=== PATIENT | female | born 1975 | race American Indian/Alaskan Native ===

== ENCOUNTER 2018-11-22 12:06 | Observation (INO) | payer OTHER ==
[2018-11-22 12:38] VITALS: BMI 37.3
[2018-11-22] MEDS ORDERED: Sodium Chloride 0.9% 1,000 ML IV ONE ×2 (13:48→14:37)
--- NOTE | 2018-11-22 14:01 | C.PDOC ---
History Of Present Illness Patient is a 43 year old female, with a PMHx of asthma and a PSHx of tubal ligation 18 years ago, who presents to the ED c/o nausea, vomiting, and abdominal pain since 6am yesterday. She also notes that she has a headache that began in the ED. Patient states that she has not been able to keep anything down and that her last BM was 2 days ago. 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 She denies any diarrhea, constipation, urinary symptoms, CP, SOB, or sick contacts. Time Seen by Provider: 11/22/18 13:14 Chief Complaint (Nursing): GI Problem History Per: Patient History/Exam Limitations: no limitations Onset/Duration Of Symptoms: Days (1) Current Symptoms Are (Timing): Still Present Location Of Pain/Discomfort: Epigastric Quality Of Discomfort: "Pain" Associated Symptoms: Nausea, Vomiting. denies: Diarrhea, Chest Pain, Constipation, Urinary Symptoms Recent travel outside of the [place]: No Additional History Per: Patient Past Medical History Reviewed: Historical Data, Nursing Documentation, Vital Signs Vital Signs: Last Vital Signs Temp 99.4 F 11/22/18 12:33 Pulse 109 H 11/22/18 12:33 Resp 18 11/22/18 12:33 BP 151/93 H 11/22/18 12:33 Pulse Ox 99 11/22/18 12:33 - Medical History PMH: No Chronic Diseases Surgical History: No Surg Hx Family History: States: Unknown Family Hx - Social History Hx Tobacco Use: No Hx Alcohol Use: Yes Hx Substance Use: No - Immunization History Hx Influenza Vaccination: No Hx Pneumococcal Vaccination: No Review Of Systems Cardiovascular: Negative for: Chest Pain Respiratory: Negative for: Shortness of Breath Gastrointestinal: Positive for: Nausea, Vomiting, Abdominal Pain (epigastric). Negative for: Diarrhea, Constipation Genitourinary: Negative for: Dysuria, Hematuria Neurological: Positive for: Headache Physical Exam - Physical Exam Appears: Non-toxic, No Acute Distress Head: Atraumatic, Normacephalic Oral Mucosa: Moist Neck: Supple Chest: Symmetrical, No Deformity Cardiovascular: No Rhythm Regular (tachycardic), No Murmur Respiratory: Normal Breath Sounds, No Rales, No Rhonchi, No Wheezing Gastrointestinal/Abdominal: Soft, Tenderness (epigastric), No Guarding, No Rebound Neurological/Psych: Oriented x3, Normal Speech, Normal Cognition ED Course And Treatment - Laboratory Results Result Diagrams: 11/22/18 14:08 11/22/18 14:08 ECG: Interpreted By Me, Viewed By Me ECG Rhythm: Sinus Rhythm Interpretation Of ECG: U waves presents. No acute ST/T wave changes Rate From EC O2 Sat by Pulse Oximetry: 99 (on RA) Pulse Ox Interpretation: Normal - Other Rad Obstructive Series X-Ray: Viewed By Me, Read By Radiologist Interpretation: Date of service: 11/22/2018. PROCEDURE: Radiographs of the chest and abdomen (obstructive series). HISTORY: NAUSEA/VOMITING, H/O SURGERY. COMPARISON: No prior. TECHNIQUE: AP radiograph of the chest, with upright and supine radiographs of the abdomen. FINDINGS: CHEST: Lungs: The lungs are well inflated and clear. Cardiovascular: Normal size heart. No pulmonary vascular congestion. No aortic atherosclerotic calcification present. Pleura: No pleural fluid. No pneumothorax. Other findings: None. ABDOMEN AND PELVIS: Bowel: The bowel gas pattern is nonspecific. No evidence of bowel dilatation or obstruction. There is gas in normal caliber colon. Free air: None. Bones: Unremarkable. Other findings: None. IMPRESSION: Nonspecific nonobstructive bowel-gas pattern. Clear lungs. Progress Note: Plan: Labs. Obstructive Series. Urinalysis HCG. Urinalysis. EKG. Pepcid 20mg IVP. Reglan 10mg IV. Zofran 4mg IVP. Potassium Chloride 20meq in 100ml IVPB. IV Fluids Disposition - Disposition Forms: [facility] (Greek) - Scribe Statement The provider has reviewed the documentation as recorded by the Cheyenne Marks All medical record entries made by the Scribe were at my direction and personally dictated by me. I have reviewed the chart and agree that the record accurately reflects my personal performance of the history, physical exam, medical decision making, and the department course for this patient. I have also personally directed, reviewed, and agree with the discharge instructions and disposition.
[2018-11-22 14:21] LABS: BASO # 0.1 K/uL (0.0-0.2); BASO % 0.5 % (0.0-2.0); HEMOGLOBIN 13.8 g/dL (11.0-16.0); LYMPH # 1.6 K/uL (1.0-4.3); LYMPH % 8.9 % (20.0-40.0); MEAN CELL VOLUME 81.1 fL (81.0-99.0); MEAN CORPUSCULAR HEMOGLOBIN 25.9 pg (27.0-31.0); MEAN PLATELET VOLUME 9.7 fL (7.2-11.7); MONO # 1.2 K/uL (0.0-0.8); MONO % 6.8 % (0.0-10.0); NEUT # 14.9 K/uL (1.8-7.0); NEUT % 83.8 % (50.0-75.0); PLATELET COUNT 471 K/uL (130-400); RBC 5.32 Mil/uL (3.80-5.20); RED CELL DISTRIBUTION WIDTH 14.4 % (11.5-14.5); WHITE BLOOD COUNT 17.8 K/uL (4.8-10.8)
[2018-11-22] MEDS ORDERED: Sodium Chloride 0.9% 1,000 ML ONE (14:21)
[2018-11-22 14:31] LABS: HCG,QUALITATIVE URINE NEGATIVE (NEGATIVE)
[2018-11-22 14:32] LABS: ALB/GLOB RATIO 1.2 (1.0-2.1); ALBUMIN 5.1 g/dL (3.5-5.0); ALT/SGPT 16 U/L (9-52); AST/SGOT 38 U/L (14-36); BLOOD UREA NITROGEN 17 mg/dL (7-17); CALCIUM 9.7 mg/dl (8.6-10.4); GFR NON-AFRICAN AMERICAN 54; LIPASE 52 U/L (23-300)
[2018-11-22 14:51] LABS: SQUAMOUS EPITHIAL 3 /hpf (0-5); URINE BILIRUBIN NEGATIVE (NEGATIVE); URINE BLOOD 3+ (NEGATIVE); URINE CLARITY Hazy (Clear); URINE COLOR Amber (YELLOW); URINE GLUCOSE (UA) NORMAL (Normal); URINE HYALINE CAST >20 /lpf (0-2); URINE LEUKOCYTE ESTERASE 1+ Leu/uL (Negative); URINE PROTEIN 2+ mg/dL (NEGATIVE); URINE UROBILINOGEN NORMAL mg/dL (0.2-1.0)
[2018-11-22 14:59] LABS: URINE BACTERIA MANY (<OCC)
[2018-11-22 15:00] LABS: BANDS 2 % (0-2); LYMPHOCYTE 9 % (20-40); MONOCYTE 6 % (0-10); NEUTROPHIL 83 % (50-75); PLATELET ESTIMATE SLIGHTLY INCREASED (NORMAL); TOTAL CELLS COUNTED 100
[2018-11-22 15:01] LABS: LARGE PLATELETS PRESENT
[2018-11-22 15:02] LABS: HYPOCHROMIC SLIGHT; STOMATOCYTES SLIGHT
[2018-11-22] MEDS ORDERED: Potassium Chloride 20 mEq ER Tab PO STA (15:14)
[2018-11-22] MEDS ORDERED: Potassium Chloride 20 mEq ER Tab PO ONE (15:24)
[2018-11-22] MEDS ORDERED: Potassium Chloride 20 mEq 100 ML ONE (15:25)
--- NOTE | 2018-11-22 15:40 | RAD ---
Date of service: 11/22/2018 PROCEDURE: Radiographs of the chest and abdomen (obstructive series) HISTORY: NAUSEA/VOMITING, H/O SURGERY COMPARISON: No prior. TECHNIQUE: AP radiograph of the chest, with upright and supine radiographs of the abdomen. FINDINGS: CHEST: Lungs: The lungs are well inflated and clear. Cardiovascular: Normal size heart. No pulmonary vascular congestion. No aortic atherosclerotic calcification present Pleura: No pleural fluid. No pneumothorax. Other findings: None. ABDOMEN AND PELVIS: Bowel: The bowel gas pattern is nonspecific. No evidence of bowel dilatation or obstruction. There is gas in normal caliber colon. Free air: None. Bones: Unremarkable. Other findings: None. IMPRESSION: Nonspecific nonobstructive bowel-gas pattern. Clear lungs.
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
[2018-11-22 20:40] LABS: HEPATITIS B SURFACE AG Negative (NEGATIVE)
[2018-11-22 20:46] LABS: HEPATITIS A IGM NEGATIVE (NEGATIVE); HEPATITIS B CORE AB NEGATIVE (NEGATIVE)
[2018-11-22 20:58] LABS: HEPATITIS C ANTIBODY NEGATIVE (NEGATIVE)
--- NOTE | 2018-11-23 06:59 | CP.PCM.PN ---
Objective - Vital Signs/Intake and Output Vital Signs (last 24 hours): Temp Pulse Resp BP Pulse Ox 98.1 F 75 14 155/71 H 100 11/23/18 06:00 11/23/18 06:00 11/23/18 06:00 11/23/18 06:00 11/23/18 06:00 Intake and Output: 11/22/18 11/23/18 18:59 06:59 Intake Total 500 Balance 500 - Medications Medications: Current Medications Famotidine (Pepcid) 20 mg PO DAILY [facility] Ceftriaxone Sodium 1 gm/ (Sodium Chloride) 100 mls @ 100 mls/hr IVPB Q12H [facility]ASI; Protocol Last Admin: 11/22/18 20:44 Dose: 100 mls/hr Potassium Chloride 20 meq/ (Sodium Chloride) 1,010 mls @ 100 mls/hr IV .Q10H6M KASI Last Admin: 11/23/18 06:14 Dose: 100 mls/hr Ondansetron HCl (Zofran Inj) 4 mg IVP Q6H PRN PRN Reason: Nausea/Vomiting Saccharomyces Boulardii (Florastor) 250 mg PO BID KASI - Labs Labs: 11/22/18 14:08 11/22/18 23:02
[2018-11-23 07:30] LABS: BASO % 0.4 % (0.0-2.0); EOS % 0.1 % (0.0-4.0); LYMPH # 2.5 K/uL (1.0-4.3); LYMPH % 24.7 % (20.0-40.0); MEAN CELL VOLUME 81.5 fL (81.0-99.0); MEAN CORPUSCULAR HEMOGLOBIN 26.7 pg (27.0-31.0); MEAN CORPUSCULAR HGB CONC 32.7 g/dL (33.0-37.0); MEAN PLATELET VOLUME 9.4 fL (7.2-11.7); MONO # 0.9 K/uL (0.0-0.8); MONO % 8.5 % (0.0-10.0); NEUT # 6.6 K/uL (1.8-7.0); NEUT % 66.3 % (50.0-75.0); RBC 4.37 Mil/uL (3.80-5.20); RED CELL DISTRIBUTION WIDTH 14.3 % (11.5-14.5)
[2018-11-23 07:35] LABS: HEMOGLOBIN 11.7 g/dL (11.0-16.0)
[2018-11-23 07:51] LABS: ALB/GLOB RATIO 1.3 (1.0-2.1); ALBUMIN 3.7 g/dL (3.5-5.0); ALT/SGPT 22 U/L (9-52); AST/SGOT 29 U/L (14-36); BLOOD UREA NITROGEN 8 mg/dL (7-17); CALCIUM 7.7 mg/dl (8.6-10.4); GFR NON-AFRICAN AMERICAN > 60
[2018-11-23 08:17] VITALS: RESP 20
[2018-11-23] MEDS ORDERED: Enoxaparin 40 mg Syringe SC SCH (10:00)
[2018-11-23] MEDS: Saccharomyces Boulardi 250 mg Cap PO SCH ×2 (10:12→17:55)
[2018-11-23] MEDS ORDERED: Potassium Chloride 20 mEq ER Tab PO ONE (10:30)
[2018-11-23 15:35] VITALS: BP 161/76; TEMP 98; O2SAT 96
[2018-11-23 15:49] VITALS: PULSE 70
--- NOTE | 2018-11-23 19:18 | CP.PCM.DIS ---
Provider - Provider Date of Admission: 11/22/18 16:45 Attending physician: Gaurav Cohen MD Time Spent in preparation of Discharge (in minutes): 180 Diagnosis - Discharge Diagnosis (1) Gastroenteritis Status: Acute Hospital Course - Lab Results Lab Results: Micro Results 11/22/18 22:16 Urine,Clean Catch Urine Culture - Preliminary No growth. Most Recent Lab Values WBC 10.0 K/uL (4.8-10.8) 11/23/18 07:21 RBC 4.37 Mil/uL (3.80-5.20) 11/23/18 07:21 Hgb 11.7 g/dL (11.0-16.0) D 11/23/18 07:21 Hct 35.6 % (34.0-47.0) 11/23/18 07:21 MCV 81.5 fL (81.0-99.0) 11/23/18 07:21 MCH 26.7 pg (27.0-31.0) L 11/23/18 07:21 MCHC 32.7 g/dL (33.0-37.0) L 11/23/18 07:21 RDW 14.3 % (11.5-14.5) 11/23/18 07:21 Plt Count 344 K/uL (130-400) D 11/23/18 07:21 MPV 9.4 fL (7.2-11.7) 11/23/18 07:21 Neut % (Auto) 66.3 % (50.0-75.0) 11/23/18 07:21 Lymph % (Auto) 24.7 % (20.0-40.0) 11/23/18 07:21 Simpson % (Auto) 8.5 % (0.0-10.0) 11/23/18 07:21 Eos % (Auto) 0.1 % (0.0-4.0) 11/23/18 07:21 Baso % (Auto) 0.4 % (0.0-2.0) 11/23/18 07:21 Neut # (Auto) 6.6 K/uL (1.8-7.0) 11/23/18 07:21 Lymph # (Auto) 2.5 K/uL (1.0-4.3) 11/23/18 07:21 Simpson # (Auto) 0.9 K/uL (0.0-0.8) H 11/23/18 07:21 Eos # (Auto) 0.0 K/uL (0.0-0.7) 11/23/18 07:21 Baso # (Auto) 0.0 K/uL (0.0-0.2) 11/23/18 07:21 Neutrophils % (Manual) 83 % (50-75) H 11/22/18 14:08 Band Neutrophils % 2 % (0-2) 11/22/18 14:08 Lymphocytes % (Manual) 9 % (20-40) L 11/22/18 14:08 Monocytes % (Manual) 6 % (0-10) 11/22/18 14:08 Platelet Estimate Slightly increased (NORMAL) H 11/22/18 14:08 Large Platelets Present 11/22/18 14:08 Hypochromasia (manual) Slight 11/22/18 14:08 Stomatocytes Slight 11/22/18 14:08 Sodium 138 mmol/L (132-148) 11/23/18 07:21 Potassium 3.2 mmol/L (3.6-5.2) L 11/23/18 07:21 Chloride 105 mmol/L (98-107) 11/23/18 07:21 Carbon Dioxide 23 mmol/L (22-30) 11/23/18 07:21 Anion Gap 13 (10-20) 11/23/18 07:21 BUN 8 mg/dL (7-17) 11/23/18 07:21 Creatinine 0.7 mg/dL (0.7-1.2) 11/23/18 07:21 Est GFR ( Amer) > 60 11/23/18 07:21 Est GFR (Non-Af Amer) > 60 11/23/18 07:21 Random Glucose 110 mg/dL (65-105) H 11/23/18 07:21 Calcium 7.7 mg/dl (8.6-10.4) L 11/23/18 07:21 Phosphorus 2.0 mg/dL (2.5-4.5) L 11/23/18 07:21 Magnesium 2.0 mg/dL (1.6-2.3) 11/23/18 07:21 Total Bilirubin 0.9 mg/dL (0.2-1.3) 11/23/18 07:21 AST 29 U/L (14-36) 11/23/18 07:21 ALT 22 U/L (9-52) 11/23/18 07:21 Alkaline Phosphatase 71 U/L (38-126) 11/23/18 07:21 Total Protein 6.7 g/dL (6.3-8.3) 11/23/18 07:21 Albumin 3.7 g/dL (3.5-5.0) 11/23/18 07:21 Globulin 3.0 gm/dL (2.2-3.9) 11/23/18 07:21 Albumin/Globulin Ratio 1.3 (1.0-2.1) 11/23/18 07:21 Lipase 52 U/L (23-300) 11/22/18 14:08 Urine Color Fatou (YELLOW) 11/22/18 14:08 Urine Clarity Hazy (Clear) 11/22/18 14:08 Urine pH 5.0 (5.0-8.0) 11/22/18 14:08 Ur Specific [place] 1.025 (1.003-1.030) 11/22/18 14:08 Urine Protein 2+ mg/dL (NEGATIVE) H 11/22/18 14:08 Urine Glucose (UA) Normal mg/dL (Normal) 11/22/18 14:08 Urine Ketones 1+ mg/dL (NEGATIVE) H 11/22/18 14:08 Urine Blood 3+ (NEGATIVE) H 11/22/18 14:08 Urine Nitrate Negative (NEGATIVE) 11/22/18 14:08 Urine Bilirubin Negative (NEGATIVE) 11/22/18 14:08 Urine Urobilinogen Normal mg/dL (0.2-1.0) 11/22/18 14:08 Ur Leukocyte Esterase 1+ [place]/uL (Negative) H 11/22/18 14:08 Urine WBC (Auto) 20 /hpf (0-5) H 11/22/18 14:08 Urine RBC (Auto) 337 /hpf (0-3) H 11/22/18 14:08 Ur Squamous Epith Cells 3 /hpf (0-5) 11/22/18 14:08 Urine Bacteria Many (<OCC) H 11/22/18 14:08 Hyaline Casts >20 /lpf (0-2) H 11/22/18 14:08 Urine HCG, Qual Negative (NEGATIVE) 11/22/18 14:08 Hepatitis A IgM Ab Negative (NEGATIVE) 11/22/18 19:59 Hep Bs Antigen Negative (NEGATIVE) 11/22/18 19:59 Hep B Core IgM Ab Negative (NEGATIVE) 11/22/18 19:59 Hepatitis C Antibody Negative (NEGATIVE) 11/22/18 19:59 - Hospital Course Hospital Course: On admission: Patient is a 43 year old female with PMHx of asthma who presents today for 1 day of intractable vomiting. Patient says 1 day ago she woke up at 6 am feeling very nauseous and has been vomiting every 15 minutes since. Patient says the vomit was yellow at first and now is brown in color. Patient denies any blood in the vomit. Patient denies any new foods the day prior. Patient has no sick contacts. Patient says she has been having chills and then getting very hot. Patient also admits to epigastric pain which she rates 7/10. Patient is currently on her menstrual cycle. Patient denies any chest pain, diarrhea, or constipation. Patient last had a bowel movement 2 days ago. Prior to the past day patient had been feeling well. Patient has a slight headache. Patient denies dizziness, chest pain, or shortness of breath. Patient has never had anything like this in the past. On hospitalization: Admitted for observation of vomiting, likely viral vs bacterial Gastroenteritis, Abd obstructive series shows nonspecific nonobstructive bowel gas pattern, patient given Zofran and NS with 20 meq potassium, hypokalemia on admission. hep panel negative. elevated wbc. U/a positive for LES, many bacteria, elevated WBC, blood 3+, indicated possible UTI. Ucx shows no growth. Rocephin IV given. PAtient reports improvement of symptoms. On discharge: Patient stable to be discharge as per Dr Cohen Patient to resume regular diet, and continue drinking fluids Patient to start Keflex 500mg per mouth, twice a day for 7 days, dispense #14 Patient is to follow up at our clinic ([facility]) in 7-10 days, please make an appointment as soon as you are discharged. If your symptoms worsen or recur please return to the ED. This is a short summary of patient hospitalization course. for more information please refer to patient's EMR. - Date & Time of H&P Date of H&P: 11/22/18 Time of H&P: 17:19 Discharge Exam - Head Exam Head Exam: ATRAUMATIC, NORMAL INSPECTION, NORMOCEPHALIC - Eye Exam Eye Exam: EOMI, Normal appearance - ENT Exam ENT Exam: Mucous Membranes Moist - Neck Exam Neck exam: Full Rom - Respiratory Exam Respiratory Exam: Clear to PA & Lateral, UNREMARKABLE. absent: Rhonchi, Respiratory Distress - Cardiovascular Exam Cardiovascular Exam: REGULAR RHYTHM, +S1, +S2 - GI/Abdominal Exam GI & Abdominal Exam: Normal Bowel Sounds, Soft, Unremarkable. absent: Tenderness - Extremities Exam Extremities exam: full ROM - Back Exam Back exam: NORMAL INSPECTION - Neurological Exam Neurological exam: Alert, Oriented x3 - Psychiatric Exam Psychiatric exam: Normal Affect, Normal Mood - Skin Skin Exam: Dry, Intact, Normal Color, Warm Discharge Plan - Discharge Medications Prescriptions: Cephalexin [Keflex] 500 mg PO BID 7 Days #14 capsule - Follow Up Plan Condition: GOOD Disposition: HOME/ ROUTINE Instructions: Hypokalemia (DC), Nausea and Vomiting, Adult (DC), Cephalexin Additional Instructions: Patient stable to be discharge as per Dr Cohen Patient to resume regular diet, and continue drinking fluids Patient to start Keflex 500mg per mouth, twice a day for 7 days, dispense #14 Patient is to follow up at our clinic ([facility]) in 7-10 days, please make an appointment as soon as you are discharged. If your symptoms worsen or recur please return to the ED. Referrals: [facility] [Outside]
[2018-11-24] MEDS ORDERED: Potassium Chloride 20 mEq ER Tab PO ONE (10:12)
== END 2018-11-23 19:49 | disposition home or self-care (01) ==
LOC: C.ER 12:06 → C.9E 16:45 → C.5S 17:31
PROVIDERS: ADMIT Internal Medicine; ATTEND Internal Medicine
DX: A08.4 Viral intestinal infection, unspecified (principal); J45.909 Unspecified asthma, uncomplicated; E87.6 Hypokalemia; N39.0 Urinary tract infection, site not specified; Z87.891 Personal history of nicotine dependence
CPT/HCPCS: 36415; 74022; 80053; 80074; 81001; 83690; 83735; 84100; 84132; 84703; 85025; 87086; 96374; 99285; G0378; J0696; J1650; J2405; J2765; J3480; J7030

== ENCOUNTER 2018-12-26 11:54 | Emergency (ER) | payer SELFPAY | END 2018-12-26 18:28 | disposition home or self-care (01) | LOC: C.ER 11:54 ==